=== PATIENT | male | born 1960 | race Two or more races ===

== ENCOUNTER → 2024-05-23 | Outpatient (CLI) | payer BC, SELFPAY ==
[2024-05-23 10:31] LABS: Prostate Specific Antigen 1.97 ng/mL (0-4.00)
[2024-05-23 10:35] LABS: Vitamin D 25 Hydroxy Total 38.9 ng/mL (7.3-40.2)
[2024-05-23 10:36] LABS: Alanine Aminotransferase 25 U/L (10-49); Albumin, Serum 4.8 gm/dL (3.4-4.8); Albumin/Globulin Ratio 1.7 (1.2-2.2); Alkaline Phosphatase 96 U/L (46-116); Anion Gap 8 (7-16); Aspartate Amino Transferase 20 U/L (0-34); BUN/Creatinine Ratio 15 Ratio (12-20); Bilirubin,Total 0.4 mg/dL (0.3-1.2); Blood Urea Nitrogen 15 mg/dL (9-23); Calcium 10.1 mg/dL (8.3-10.6); Calcium (Corrected) 10.1 mg/dL (8.5-10.1); Carbon Dioxide 28.4 mMol/L (20.0-31.0); Cardiac Risk Estimate 5.3 RATIO (4.0-6.7); Chloride 106 mMol/L (98-107); Cholesterol 230 mg/dL (132-200); Free T4 (Free Thyroxine) 1.11 ng/dL (0.89-1.76); Globulin 2.8 gm/dL (2.3-3.5); Glucose 104 mg/dL (74-106); HDL Cholesterol 43 mg/dL (40-60); LDL Cholesterol,Calculated 142 mg/dL (0-130); Osmolality,Calculated 283 (275-295); Potassium 4.8 mMol/L (3.4-5.1); Sodium 142 mMol/L (136-145); Total Protein 7.6 gm/dL (5.7-8.2); Triglycerides 225 mg/dL (30-150); eGFR > 60 See Note
== END | disposition home or self-care (01) ==
LOC: COPL 08:51
PROVIDERS: PCP Family Medicine; Referring Provider Family Medicine; Visit Provider Family Medicine
DX: Z13.1 Encounter for screening for diabetes mellitus (principal); E78.1 Pure hyperglyceridemia; E03.2 Hypothyroidism due to medicaments and other exogenous substances; E55.9 Vitamin D deficiency, unspecified
CPT/HCPCS: 36415; 80053; 80061; 82306; 84153; 84439; 84443

== ENCOUNTER → 2024-12-26 | Outpatient (CLI) | payer BC, SELFPAY ==
--- NOTE | 2024-12-26 | XR_ITS ---
Examination: Fingers, right hand 3 views, AP right hand single view Technique: AP, oblique, lateral views right hand second digit, AP right hand single view total 4 views. Exam date and time: December 26, 2024, 12:15 PM INDICATIONS: Injury to the hand 3 months ago with second digit pain. FINDINGS: Mild juxta-articular bone demineralization. No acute fracture No dislocation IMPRESSION: No acute fracture
--- NOTE | 2024-12-26 | XR_ITS ---
Examination: Right elbow 3 views Technique: Elbow AP, oblique, lateral 3 views Exam date and time: December 26, 2024, 1215 hours INDICATIONS: Injury to the elbow 3 months ago, elbow pain. FINDINGS: No fracture or dislocation No foreign body IMPRESSION: No fracture or dislocation.
== END | disposition home or self-care (01) ==
LOC: CDIM 11:24
PROVIDERS: Referring Provider Family Medicine; Visit Provider Family Medicine
DX: S59.901A Unspecified injury of right elbow, initial encounter (principal); S69.91XA Unspecified injury of right wrist, hand and finger(s), initial encounter; X58.XXXA Exposure to other specified factors, initial encounter
CPT/HCPCS: 73080; 73140

== ENCOUNTER → 2024-12-27 | Outpatient (CLI) | payer BC, SELFPAY ==
[2024-12-27 09:59] LABS: Alanine Aminotransferase 26 U/L (10-49); Albumin, Serum 4.5 gm/dL (3.4-4.8); Albumin/Globulin Ratio 1.6 (1.2-2.2); Alkaline Phosphatase 79 U/L (46-116); Anion Gap 8 (7-16); Aspartate Amino Transferase 17 U/L (0-34); BUN/Creatinine Ratio 8 Ratio (12-20); Bilirubin,Total 0.6 mg/dL (0.3-1.2); Blood Urea Nitrogen 11 mg/dL (9-23); Calcium 9.7 mg/dL (8.3-10.6); Calcium (Corrected) 9.7 mg/dL (8.5-10.1); Carbon Dioxide 26.8 mMol/L (20.0-31.0); Cardiac Risk Estimate 6.0 RATIO (4.0-6.7); Chloride 105 mMol/L (98-107); Cholesterol 221 mg/dL (132-200); Creatinine (Component) 1.3 mg/dL (0.6-1.3); Free T4 (Free Thyroxine) 1.23 ng/dL (0.89-1.76); Globulin 2.9 gm/dL (2.3-3.5); Glucose 106 mg/dL (74-106); HDL Cholesterol 37 mg/dL (40-60); LDL Cholesterol,Calculated 118 mg/dL (0-130); Osmolality,Calculated 278 (275-295); Potassium 4.5 mMol/L (3.4-5.1); Sodium 140 mMol/L (136-145); Thyroid Stimulating Hormone 1.44 uIU/mL (0.55-4.78); Total Protein 7.4 gm/dL (5.7-8.2); Triglycerides 328 mg/dL (30-150); eGFR > 60 See Note
[2024-12-27 10:00] LABS: Prostate Specific Antigen 1.27 ng/mL (0-4.00)
== END | disposition home or self-care (01) ==
LOC: COPL 08:32
PROVIDERS: PCP Family Medicine; Referring Provider Family Medicine; Visit Provider Family Medicine
DX: E78.1 Pure hyperglyceridemia (principal); E03.2 Hypothyroidism due to medicaments and other exogenous substances; N42.9 Disorder of prostate, unspecified; Z13.1 Encounter for screening for diabetes mellitus
CPT/HCPCS: 36415; 80053; 80061; 84153; 84439; 84443

== ENCOUNTER → 2025-02-18 | Outpatient (CLI) | payer BC, SELFPAY ==
--- NOTE | 2025-02-18 12:00 | XR_ITS ---
Examination: MRI elbow without contrast Date and time of exam: February 18, 2029, 12:19 p.m. INDICATIONS: Posterior elbow pain weakness and lifting objects joint clicking in the elbow 5 months Technique: Multiple MRI axial and sagittal sections lumbar spine. Sagittal T2-weighted images, TR 3500, TE 118 T1 weighted transverse sections, TR 688 T8.5, T2-weighted sagittal sections T1 weighted sagittal sections TR 621, TE 30 T2 axial sections, TR 4, 190, TE 84. Findings: Adequate marrow signal distal humerus radial head and neck proximal ulna including olecranon Moderate strain triceps tendon Normal insertion long head of the biceps Moderate strain common flexor and common extensor tendons No ossified joint bodies Small elbow effusion IMPRESSION: No occult fracture or bone contusion or marrow edema Moderate strain triceps and tendon Normal insertion long head of the biceps Moderate strain common flexor and common extensor tendons
== END | disposition home or self-care (01) ==
LOC: SMRI 11:25
PROVIDERS: PCP Family Medicine; Referring Provider Family Medicine; Visit Provider Family Medicine
DX: S46.311A Strain of muscle, fascia and tendon of triceps, right arm, initial encounter (principal); S56.211A Strain of other flexor muscle, fascia and tendon at forearm level, right arm, initial encounter; S56.511A Strain of other extensor muscle, fascia and tendon at forearm level, right arm, initial encounter; X58.XXXA Exposure to other specified factors, initial encounter
CPT/HCPCS: 73221

== ENCOUNTER → 2025-02-22 | Outpatient (CLI) | payer BC, SELFPAY ==
--- NOTE | 2025-02-22 10:03 | XR_ITS ---
EXAMINATION: Cervical spine, 5 views Technique: Cervical spine AP, AP odontoid, lateral, bilateral obliques, 5 views Exam date and time: February 22, 2025, 1025 hours INDICATIONS: Neck pain 5 years getting worse. FINDINGS: Straightening normal cervical lordosis No cervical fracture Intact odontoid Advanced degenerative disc disease C5-C6, C6-C7 with moderate bilateral neuroforaminal stenosis, more severe on the right side IMPRESSION: Advanced degenerative disc disease C5-C6, C6-C7 with moderate bilateral neuroforaminal stenosis at these levels
== END | disposition home or self-care (01) ==
LOC: CDIM 09:46
PROVIDERS: PCP Family Medicine; Referring Provider Family Medicine; Visit Provider Family Medicine
DX: M50.322 Other cervical disc degeneration at C5-C6 level (principal); M48.02 Spinal stenosis, cervical region
CPT/HCPCS: 72050